=== PATIENT | male | born 1950 | race American Indian/Alaskan Native ===

== ENCOUNTER 2016-11-30 14:11 | Outpatient (CLI) | payer MEDICARE ==
--- NOTE | 2016-12-01 07:20 | XRay Report ---
Left shoulder 2 views: History: Shoulder pain. Findings: There is internal fixation noted of fracture neck humerus with metallic plate and screws. Bony fragments are identified adjacent to the greater tuberosity probably related to old injury or ossification. Similar fragments also noted at the inferior aspect of the glenohumeral joint. Impression: Findings as detailed above. No previous studies available for comparison.
== END 2016-11-30 14:12 | disposition home or self-care (01) ==
LOC: XRAY 14:11 → SPVIMAG 14:11 → XRAY 14:12
PROVIDERS: ATTEND Orthopaedic Surgery Sports Medicine
DX: M25.512 Pain in left shoulder (principal)

== ENCOUNTER 2017-01-31 09:33 | Outpatient (CLI) | payer MEDICARE ==
--- NOTE | 2017-01-31 10:21 | XRay Report ---
Left humerus 2 views. History: Humeral fracture. Findings: An orthopedic side plate and multiple screws are seen transfixing the proximal humeral fracture. Callus formation is seen about the fracture site. No radiographic signs of complications are seen.
== END 2017-01-31 09:34 | disposition home or self-care (01) ==
LOC: SPVIMAG 09:33
PROVIDERS: ATTEND Orthopaedic Surgery Sports Medicine
DX: S42.202D Unspecified fracture of upper end of left humerus, subsequent encounter for fracture with routine healing (principal); X58.XXXD Exposure to other specified factors, subsequent encounter

== ENCOUNTER 2017-03-02 14:11 | Outpatient (CLI) | payer MEDICARE ==
--- NOTE | 2017-03-02 14:38 | XRay Report ---
XRAY LEFT SHOULDER THREE VIEWS: 03/02/17 14:11:00 CLINICAL: Followup fracture. COMPARISON: 01/31/17 FINDINGS: A lateral plate with screws and wires fixate a comminuted humeral neck fracture. Persistent fracture lines with no bridging callus identified. Bone cement is also identified at the fracture. Normal glenohumeral alignment. Normal soft tissues. IMPRESSION: Subacute comminuted proximal humeral fracture as with persistent fracture lines and no bridging callus. Fixation hardware is unchanged compared to the last exam.
== END 2017-03-02 14:12 | disposition home or self-care (01) ==
LOC: SPVIMAG 14:11
PROVIDERS: ATTEND Orthopaedic Surgery Sports Medicine
DX: S42.292D Other displaced fracture of upper end of left humerus, subsequent encounter for fracture with routine healing (principal); X58.XXXD Exposure to other specified factors, subsequent encounter

== ENCOUNTER 2017-04-13 13:07 | Outpatient (CLI) | payer MEDICARE ==
--- NOTE | 2017-04-13 15:57 | XRay Report ---
XRAY LEFT HUMERUS THREE VIEWS: 04/13/17 CLINICAL: Proximal humeral fracture. COMPARISON: 03/02/17 FINDINGS: A comminuted proximal humeral fracture with persistent fracture lines is unchanged compared to the prior exam. Fixation hardware is unchanged. The distal humerus is normal and the elbow is unremarkable. IMPRESSION: Subacute comminuted proximal humeral fracture with no change.
== END 2017-04-13 13:08 | disposition home or self-care (01) ==
LOC: SPVIMAG 13:07
PROVIDERS: ATTEND Orthopaedic Surgery Sports Medicine
DX: S42.292A Other displaced fracture of upper end of left humerus, initial encounter for closed fracture (principal); X58.XXXA Exposure to other specified factors, initial encounter; Y93.89 Activity, other specified; Y92.89 Other specified places as the place of occurrence of the external cause; Y99.8 Other external cause status